=== PATIENT | male | born 1985 | race African-American/Black ===

== ENCOUNTER → 2018-10-23 | Outpatient (CLI) | payer OTHER ==
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
--- NOTE | 2018-10-23 16:02 | RAD ---
Bilateral femurs, 10/23/2017: HISTORY: Follow-up femur fracture No previous femur radiographs are available at this time for comparison purposes. An intramedullary keith with associated screws is in place in the right femur traversing a nondisplaced distal femoral shaft fracture. There is solid bony bridging at the fracture site. There is mild adjacent dystrophic calcification in the soft tissues at the fracture site. No additional bony abnormality is seen. On the left, there is also an intramedullary keith with associated screws in place transfixing a mid femoral shaft fracture. There is solid bony bridging at that fracture site. There are also surgical pins transfixing a left femoral neck fracture. The femoral neck fracture fragments appear to be in satisfactory position. A portion of that fracture line adjacent to the lesser trochanter remains visible. IMPRESSION: Old, internally fixed bilateral femoral shaft and left femoral neck fractures as described above. Electronically signed by: Sami Garza MD (10/23/2018 3:58 PM) [facility]
== END | disposition home or self-care (01) ==
LOC: RAD 09:48
PROVIDERS: ATTEND Surgery
DX: S72.392D Other fracture of shaft of left femur, subsequent encounter for closed fracture with routine healing (principal); S72.092D Other fracture of head and neck of left femur, subsequent encounter for closed fracture with routine healing; S72.391D Other fracture of shaft of right femur, subsequent encounter for closed fracture with routine healing; S52.392D Other fracture of shaft of radius, left arm, subsequent encounter for closed fracture with routine healing; S52.292D Other fracture of shaft of left ulna, subsequent encounter for closed fracture with routine healing; S52.91XD Unspecified fracture of right forearm, subsequent encounter for closed fracture with routine healing; V89.2XXD Person injured in unspecified motor-vehicle accident, traffic, subsequent encounter
CPT/HCPCS: 73100; 73552